=== PATIENT | female | born 1985 | race Caucasian/White ===

== ENCOUNTER 2017-02-13 23:08 | Observation (INO) | payer OTHER ==
[~2017-02-13] VITALS: Ht 152.4 cm; Wt 74.9 kg
[~2017-02-13 23:08] MED LIST: AUGMENTIN875 MG PO; BACTRIM,SEPT1 TABLET PO; ERYTHROMYC1 APPLICAT LEFT EYE; GABAPENTIN300 MG PO; GABAPENTIN400 MG PO; METHADONE10 MG PO; Motrin PO; NAPROSYN500 MG PO
[2017-02-13 23:42] LABS: ADD MIUA? YES; BILIRUBIN NEGATIVE; BLOOD SMALL; COLOR YELLOW ((YELLOW)); GLUCOSE (STRIP) NEGATIVE; KETONES NEGATIVE; LEUKOCYTES LARGE; NITRITE POSITIVE; PROTEIN (STRIP) 100; SPECIFIC GRAVITY 1.012 (1.000-1.030); UROBILINOGEN 0.2 MG/DL (0.2-1.0)
[2017-02-13 23:46] LABS: HEMATOCRIT 34.8 % (36.0-46.0); MCH 30.2 PG (29.0-34.0); MCHC 33.6 G/DL (30.0-36.0); MCV 89.7 FL (83-99); MEAN PLAT.VOLUME 9.9 uM^3 (9.5-12.4); PLATELET COUNT 262 K/uL (156-360); RBC DIS.WIDTH-CV 13.4 % (11.8-14.6); RBC DIS.WIDTH-SD 43.9 % (39-53); RED BLOOD COUNT 3.88 M/uL (3.80-5.20); WHITE BLOOD COUNT 26.9 K/uL (4.1-10.2)
[2017-02-13 23:54] LABS: CHLORIDE 103 mEq/L (99-109); POTASSIUM 3.6 mEq/L (3.7-5.4); SODIUM 134 mEq/L (136-147)
[2017-02-13 23:56] LABS: GLUCOSE 127 mg/dL (70-99)
[2017-02-13 23:58] LABS: ANION GAP 12 MEQ/L (2-14); TOTAL BILIRUBIN 0.5 mg/dL (0.0-1.0)
[2017-02-14] LABS: BACTERIA 1+ /HPF; EPITHELIAL CELLS 1+ /HPF; MUCUS TRACE /LPF; UCUL ADDED? YES; WHITE BLOOD CELLS TNTC /HPF (0-5); WHITE BLOOD CELLS CLUMP FEW /HPF (0-5)
[2017-02-14] LABS: ALKALINE PHOSPHATASE 74 IU/L (3-129); GFR ESTIMATE (CALCULATED) > 59 mL/min/
[2017-02-14 00:01] LABS: UREA NITROGEN (BUN) 8 mg/dL (9-23)
[2017-02-14 00:42] LABS: QUANTITATIVE HCG 21703.2 MIU/ML
[2017-02-14] MEDS ORDERED: FOLIC ACID1 MG PO (01:34)
[2017-02-14 08:52] VITALS: BP 103/58
[2017-02-14 11:27] VITALS: BP 100/63
[2017-02-14 16:14] VITALS: BP 106/60
[2017-02-14 19:15] VITALS: BP 105/64
[2017-02-14 23:37] VITALS: BP 100/53
[2017-02-15 03:59] VITALS: BP 108/48
[2017-02-15 07:38] LABS: EOSINOPHIL (%) 0.6 % (0-5); EOSINOPHIL COUNT 0.1 K/uL (0-0.3); HEMATOCRIT 29.3 % (36.0-46.0); IMMATURE GRANULOCYTE (%) 0.6 % (0.0-0.7); IMMATURE GRANULOCYTE COUNT 0.1 K/uL; LYMPHOCYTE COUNT 1.7 K/uL (1.0-2.8); MCH 29.7 PG (29.0-34.0); MCHC 32.8 G/DL (30.0-36.0); MCV 90.7 FL (83-99); MEAN PLAT.VOLUME 10.3 uM^3 (9.5-12.4); MONOCYTE (%) 10.3 % (3-12); MONOCYTE COUNT 1.8 K/uL (0-0.8); NEUTROPHIL (%) 78.6 % (45-76); PLATELET COUNT 197 K/uL (156-360); RBC DIS.WIDTH-CV 13.6 % (11.8-14.6); RBC DIS.WIDTH-SD 45.5 % (39-53); RED BLOOD COUNT 3.23 M/uL (3.80-5.20)
[2017-02-15 07:39] VITALS: BP 100/58
[2017-02-15 07:40] LABS: ALKALINE PHOSPHATASE 74 IU/L (3-129); ANION GAP 8 MEQ/L (2-14); CHLORIDE 105 MEQ/L (99-109); GFR ESTIMATE (CALCULATED) > 59 mL/min/; POTASSIUM 3.5 MEQ/L (3.7-5.4); SAMPLE HEMOLYSIS CHECK 0; SAMPLE ICTERIC CHECK 0; SAMPLE LIPEMIA CHECK 0; SODIUM 135 MEQ/L (136-147); TOTAL BILIRUBIN 0.4 MG/DL (0.0-1.0); UREA NITROGEN (BUN) 6 mg/dL (9-23)
[2017-02-15 07:43] LABS: GLUCOSE 90 mg/dL (70-99)
[2017-02-15 08:07] LABS: WHITE BLOOD COUNT 17.8 K/uL (4.1-10.2)
[2017-02-15 11:16] VITALS: BP 104/55
[2017-02-15] MEDS ORDERED: NICOTINE PATCH1 EAC2 TD (13:30)
[2017-02-15] MEDS ORDERED: CEFTRIAXONE2 G1 IV (13:36)
== END 2017-02-15 14:35 | disposition home or self-care (01) ==
LOC: EME 23:08 → EDOF 02-14 07:36 → 2EAST 02-14 08:29
PROVIDERS: Hospitalist
DX: O98.812 Other maternal infectious and parasitic diseases complicating pregnancy, second trimester (principal); R78.81 Bacteremia; O23.02 Infections of kidney in pregnancy, second trimester; N10 Acute pyelonephritis; B96.20 Unspecified Escherichia coli [E. coli] as the cause of diseases classified elsewhere; Z3A.17 17 weeks gestation of pregnancy; E87.6 Hypokalemia; B18.2 Chronic viral hepatitis C; O99.322 Drug use complicating pregnancy, second trimester; F11.20 Opioid dependence, uncomplicated; O99.332 Smoking (tobacco) complicating pregnancy, second trimester; F17.210 Nicotine dependence, cigarettes, uncomplicated
CPT/HCPCS: 80053; 81003; 83605; 84702; 85025; 85027; 87040; 87077; 87086; 87186; 87801; 99281; 99284; G0378; J0696; J7030; J7050; J7120

== ENCOUNTER 2017-06-21 22:50 | Inpatient (IN) | payer OTHER ==
[~2017-06-21] VITALS: Ht 152.4 cm; Wt 83.6 kg
[~2017-06-21 22:50] MED LIST changes: +CEFTRIAXONE2 G1 IV; +FOLIC ACID1 MG PO; +NICOTINE PATCH1 EAC2 TD
[2017-06-21 23:04] VITALS: BP 116/65
[2017-06-21 23:48] LABS: AMPHETAMINE NEGATIVE (500 ng/mL); BARBITURATES NEGATIVE (200 ng/mL); BENZODIAZEPINES NEGATIVE (150 ng/mL); COCAINE NEGATIVE (150 ng/mL); METHAMPHETAMINE NEGATIVE (500 ng/mL); OPIATES (MORPHINE) NEGATIVE (100 ng/mL); PHENCYCLIDINE NEGATIVE (25 ng/mL); THC CANNABINOIDS NEGATIVE (50 ng/mL); TRICYCLIC ANTIDEPRESSANTS NEGATIVE (300 ng/mL)
[2017-06-21 23:49] LABS: INTERNAL CONTROLS VALID? YES; METHADONE PRESUMPTIVE POSITIVE (200 ng/mL); OXYCODONE NEGATIVE (100 ng/mL); PROPOXYPHENE NEGATIVE (300 ng/mL)
[2017-06-22] VITALS (35 sets, daily range): BP systolic 96–132; BP diastolic 49–79
[2017-06-22 00:14] LABS: EOSINOPHIL (%) 0.9 % (0-5); EOSINOPHIL COUNT 0.2 K/uL (0-0.3); HEMATOCRIT 32.6 % (36.0-46.0); IMMATURE GRANULOCYTE (%) 0.9 % (0.0-0.7); IMMATURE GRANULOCYTE COUNT 0.2 K/uL; INSTRUMENT ABS NEUTROPHIL CT 16.9 K/uL; LYMPHOCYTE COUNT 3.4 K/uL (1.0-2.8); MCH 29.7 PG (29.0-34.0); MCHC 33.1 G/DL (30.0-36.0); MCV 89.6 FL (83-99); MONOCYTE (%) 6.9 % (3-12); MONOCYTE COUNT 1.5 K/uL (0-0.8); NEUTROPHIL (%) 75.9 % (45-76); NEUTROPHIL COUNT 16.9 K/uL (1.8-6.4); PLATELET COUNT 301 K/uL (156-360); RBC DIS.WIDTH-CV 13.3 % (11.8-14.6); RED BLOOD COUNT 3.64 M/uL (3.80-5.20); WHITE BLOOD COUNT 22.2 K/uL (4.1-10.2)
[2017-06-22] MEDS ORDERED: METHADONE 22 MG/1 ML PO (01:01)
[2017-06-22 01:05] LABS: DRSB INTERNAL CONTROL PASS; PROBE CHECK PASS; SPECIMEN PROCESSING CONTROL PASS
[2017-06-22 01:55] LABS: FIBRINOGEN 405 mg/dL (150-450); INTER. NORMALIZED RATIO 0.9; PROTHROMBIN TIME 10.1 SEC (10.2-12.9)
[2017-06-22 01:57] LABS: PTT 23.2 SEC (25-37)
[2017-06-23 00:14] VITALS: BP 121/64
[2017-06-23] MEDS ORDERED: IBUPROFEN800 MG PO (00:17)
[2017-06-23 00:29] VITALS: BP 116/61
[2017-06-23 01:36] VITALS: BP 126/67
[2017-06-23 02:32] VITALS: BP 117/69
[2017-06-23 07:08] VITALS: BP 110/56
[2017-06-23 15:00] VITALS: BP 112/79
[2017-06-24 08:13] VITALS: BP 105/62
== END 2017-06-24 18:15 | disposition home or self-care (01) | DRG 774 ==
LOC: LDRP-OP 22:50 → 2WEST 22:51 → LDRP-OP 08-15 11:47
PROVIDERS: Advanced Practice Midwife
PROC: 10E0XZZ Delivery of Products of Conception, External Approach (ICD-10-PCS; principal; 2017-06-22)
PROC: 3E0S3CZ (ICD-10-PCS; 2017-06-22)
PROC: 00HU33Z Insertion of Infusion Device into Spinal Canal, Percutaneous Approach (ICD-10-PCS; 2017-06-22)
DX: O45.93 Premature separation of placenta, unspecified, third trimester (principal); O60.14X0 Preterm labor third trimester with preterm delivery third trimester, not applicable or unspecified; O99.834 Other infection carrier state complicating childbirth; B19.20 Unspecified viral hepatitis C without hepatic coma; O69.81X0 Labor and delivery complicated by cord around neck, without compression, not applicable or unspecified; O99.02 Anemia complicating childbirth; D50.9 Iron deficiency anemia, unspecified; O99.324 Drug use complicating childbirth; F11.90 Opioid use, unspecified, uncomplicated; O99.334 Smoking (tobacco) complicating childbirth; F17.200 Nicotine dependence, unspecified, uncomplicated; Z3A.36 36 weeks gestation of pregnancy; Z37.0 Single live birth
CPT/HCPCS: 76805; 85025; 85384; 85610; 85730; 86850; 86900; 86901; 87081; 87653; 88307; C1755; G0378; J0702; J1050; J1170; J2270; J2540; J3010; J7120